=== PATIENT | male | born 1960 | race Caucasian/White ===

== ENCOUNTER → 2020-07-03 08:46 | Outpatient (CLI) | payer OTHER, SELFPAY ==
[2020-07-03 11:01] LABS: Coronavirus 19 IgG Antibody Negative (Negative); Coronavirus 19 IgM Antibody Negative (Negative)
== END ==
PROVIDERS: Visit Provider Ophthalmology
DX: Z01.89 Encounter for other specified special examinations (principal); H26.9 Unspecified cataract
CPT/HCPCS: 36415; 86328

== ENCOUNTER 2020-07-04 06:34 | Day surgery (SDC) | payer OTHER, SELFPAY ==
[2020-06-23 12:59] VITALS: BMI 27.8
[2020-07-04] VITALS (7 sets, daily range): BP systolic 106–145; BP diastolic 58–82; PULSE 60–75; RESP 18; TEMP 36.4–36.9; O2SAT 94–99
== END 2020-07-04 08:48 | disposition home or self-care (01) ==
LOC: OR 06:39
PROVIDERS: PCP Family Medicine; Visit Provider Ophthalmology
PROC: (CPT 66984; principal; 2020-07-04 08:00)
DX: H26.9 Unspecified cataract (principal); F41.9 Anxiety disorder, unspecified; M19.90 Unspecified osteoarthritis, unspecified site; Z83.518 Family history of other specified eye disorder; Z83.3 Family history of diabetes mellitus; Z82.49 Family history of ischemic heart disease and other diseases of the circulatory system; Z79.82 Long term (current) use of aspirin; Z79.899 Other long term (current) drug therapy
CPT/HCPCS: 66984; V2632

== ENCOUNTER → 2020-07-17 06:56 | Outpatient (CLI) | payer OTHER, SELFPAY ==
[2020-07-17 09:28] LABS: Coronavirus 19 IgG Antibody Negative (Negative); Coronavirus 19 IgM Antibody Negative (Negative)
== END ==
PROVIDERS: Visit Provider Ophthalmology
DX: Z01.818 Encounter for other preprocedural examination (principal); H26.9 Unspecified cataract
CPT/HCPCS: 36415; 86328

== ENCOUNTER 2020-07-18 06:19 | Day surgery (SDC) | payer OTHER, SELFPAY ==
--- NOTE | 2020-07-11 12:24 | SUR.PREOP ---
left msg requesting pt have igg/igm testing on Friday, 07/17 between 8a and noon
[2020-07-18 06:33] VITALS: BP 134/83; PULSE 73; RESP 18; TEMP 36.7; O2SAT 97; BMI 27.8
[2020-07-18 07:54] VITALS: BP 152/83; PULSE 63; RESP 18; O2SAT 98
[2020-07-18 07:59] VITALS: BP 139/80; PULSE 66; RESP 18; O2SAT 98
[2020-07-18 08:04] VITALS: BP 133/81; PULSE 66; RESP 16; O2SAT 99
[2020-07-18 08:09] VITALS: BP 128/80; BP 140/84; PULSE 68; PULSE 85; RESP 16; RESP 18; TEMP 36.2; O2SAT 98; O2SAT 99
== END 2020-07-18 08:20 | disposition home or self-care (01) ==
LOC: OR 06:20
PROVIDERS: PCP Family Medicine; Visit Provider Ophthalmology
PROC: (CPT 66984; principal; 2020-07-18 07:30)
DX: H26.9 Unspecified cataract (principal); F41.9 Anxiety disorder, unspecified; M19.90 Unspecified osteoarthritis, unspecified site; Z79.82 Long term (current) use of aspirin; Z79.899 Other long term (current) drug therapy
CPT/HCPCS: 66984; V2632